=== PATIENT | male | born 2005 | race Caucasian/White ===

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

== ENCOUNTER → 2025-06-05 | Emergency (ER) | payer OTHER ==
[~2025-06-05] VITALS: Ht 177.8 cm; Wt 102.1 kg
[~2025-06-05] MED LIST: DICLOFENAC SODI50 MG PO; KETOROLAC TROMETHAMINE 30 MG VIAL IM ONE
== END | disposition home or self-care (01) ==
LOC: ER 14:35
DX: M25.471 Effusion, right ankle (principal); M25.571 Pain in right ankle and joints of right foot; Z91.038 Other insect allergy status